=== PATIENT | male | born 1985 | race Caucasian/White ===

== ENCOUNTER 2023-03-16 08:00 | Outpatient (CLI) | payer BC ==
--- NOTE | 2023-03-16 17:25 | XRAY Report ---
PROCEDURE: Foot 3 View RT INDICATIONS: RIGHT 3RD MT FRACTURE TECHNIQUE: 3 views of the foot were acquired. COMPARISON: 02/11/2023. FINDINGS: Bones: Similar alignment of minimally displaced and comminuted fracture of the distal third metatars al shaft. No new fractures identified. There is minimally increased bony bridging and callus formatio n. Soft tissues: No suspicious soft tissue calcifications or masses. IMPRESSION: Minimally displaced and comminuted fracture of the distal third metatarsal shaft with minimal interva l healing since 02/11/2023. Reviewed by: Andressa Green MD on 03/16/2023 5:23 PM PDT Approved by: Andressa Green MD on 03/16/2023 5:23 PM PDT Station ID: [id number]
== END 2023-03-16 23:59 | disposition home or self-care (01) ==
LOC: DI.WOS 08:00
PROVIDERS: ATTEND Orthopaedic Surgery
DX: S92.331D Displaced fracture of third metatarsal bone, right foot, subsequent encounter for fracture with routine healing (principal)